=== PATIENT | male | born 1970 | race Caucasian/White ===

== ENCOUNTER 2019-09-16 12:26 | Emergency (ER) | payer BC, SELFPAY ==
--- NOTE | ~2019-09-16 | CT_ITS ---
EXAMINATION: CTA chest PE protocol DATE: 09/16/2019 14:05 INDICATION: Left-sided chest pain and shortness of breath TECHNIQUE: Computed tomography (CT) pulmonary angiogram of the chest was performed with 100 mL Omnipa que-350 intravenous contrast. Additional 3D reconstructions utilizing coronal maximum intensity proje ction (MIP) were performed. Automated exposure control and iterative reconstruction technique were em ployed. The dose-length product was 470.67 mGy-cm. COMPARISON: None FINDINGS: Good contrast opacification of the pulmonary arteries. There is mild streak artifact from dense contr ast in the superior vena cava and right atrium. Mild scattered respiratory motion artifact most promi nent at the lung bases with only mildly decreases sensitivity in some of the smaller subsegmental pul monary arteries. No pulmonary embolism. Mild dependent atelectasis in the bilateral lower lobes. No p neumonia, pulmonary edema, pleural effusion or pneumothorax. Heart size is normal. Atherosclerotic co ronary artery calcification. No pericardial effusion. Thoracic aorta is normal in caliber with no dis section. Mild bilateral gynecomastia. Visualized upper abdomen is unremarkable mild thoracic and mode rate lower cervical spondylosis. IMPRESSION: 1. No pulmonary embolism or other acute cardiopulmonary disease. Reviewed, dictated and finalized at location A. [employer]
--- NOTE | ~2019-09-16 | XR_ITS ---
EXAMINATION: XR chest 2V DATE: 09/16/2019 12:57 INDICATION: Midline chest pain TECHNIQUE: PA and lateral views of the chest were obtained. COMPARISON: Chest radiograph dated 10/05/2015 FINDINGS: The lungs remain clear with no focal airspace opacities, pulmonary edema, pleural effusion or pneumot horax. The cardiomediastinal silhouette is normal. Minimal thoracic and mild upper lumbar spondylosis . IMPRESSION: 1. No acute cardiopulmonary disease. Reviewed, dictated and finalized at location A. [facility]
--- NOTE | 2019-09-16 12:33 | ECG_ITS ---
Measurements Intervals Noel Rate: 114 P: 36 PA: 147 QRS: 3 QRSD: 82 T: 64 QT: 309 QTc: 426 Interpretive Statements SINUS TACHYCARDIA LEFT ATRIAL ENLARGEMENT BORDERLINE ST ABNORMALITY- LATERAL LEADS ABNORMAL ECG Electronically Signed On 09-16-2019 18:41:33 [employer] by Clyde Valderrama D.O.
[2019-09-16 12:34] VITALS: BP 155/97; PULSE 114; RESP 20; TEMP 36.7; O2SAT 95
--- NOTE | 2019-09-16 12:39 | ED.CHESTPAIN ---
HPI - Chest Pain General Chief Complaint: Chest Pain Stated Complaint: chest tightness Time Seen by Provider: 09/16/19 12:33 Source: patient Mode of arrival: ambulatory Limitations: no limitations History of Present Illness HPI narrative: The pt is a 48 y/o male who presents to the ED c/o midsternal CP onset 45 minutes ago. Pt states that he was driving to lunch when he began to experience the pain, which he describes as a tightness. He noets that he also was experiencing numbness in the fingers in his left hand. Pt then began to experience SOB, diaphoresis, and feeling warm while going back to his car. He states that his SOB has resolved since, and that the pain improved to a 2/10. He states that at its worst, the pain was a 9/10. He does not that he has had SOB chronically, but has not been diagnosed with any respiratory conditions. He states that the pain is not improved or worsened by anything. Pt notes that he has experienced some chest congestion recently, and that he took a Mucinex for this yesterday. He notes that he had intermittent episodes of this one week ago that began while driving, but notes that these were nowhere near as bad as the pain today. Pt states that he is a former smoker, but stopped smoking in January of 2017. He notes that he used to smoke 1 PPD. Pt states that he takes medication for HTN. MD complaint: chest pain Onset (ago): minute(s) (45) Timing of current episode: constant Prior episodes: Yes (1 week ago; intermittent though nowhere near as severe as current episode) Pain location: other (Midsternal) Pain scale (0-10): 2 (was 9/10 at its worst) Quality: tightness Relieving factors: nothing Exacerbating factors: nothing Associated symptoms: diaphoresis, dyspnea (Resolved, but has had chronic issues with this) and other ( Feeling warm, numbness in fingers of left hand, Chest congestion (Recently)) Related Data Home Medications Medication Instructions Recorded Confirmed benazepril 09/16/19 Allergies Allergy/AdvReac Type Severity Reaction Status Date / Time No Known Allergies Verified 09/16/19 12:45 Review of Systems Review of Systems: All systems reviewed & are unremarkable except as noted in HPI and below Constitutional: Constitutional: Reports excessive sweating and Reports other ( Feeling warm ) ENT: Reports other (Chest congestion (Recently)) Cardiovascular: Cardiovascular: Reports chest pain (Midsternal, tightness) Respiratory: Respiratory: Reports dyspnea (Resolved, but has had chronic issues with this) Neurologic: Reports numbness (In fingers of the left hand) PMFSH Past Medical History Medical History (Updated 09/16/19 @ 16:24 by Maribel Lozano MD) Deviated septum HTN (hypertension) Surgical History Surgical History (Updated 09/16/19 @ 12:55 by Martell Granados) H/O sinus surgery Family History Family History (Updated 06/15/11 @ 16:21 by DOCTOR UNKNOWN) Grandparent Diabetes mellitus Social History Social History (Updated 09/16/19 @ 12:55 by Martell Granadso) Smoking status: Former smoker Additional smoking assessment comments: Pt used to smoke 1 PPD. Alcohol intake: current Gender identity (if verbalized by the patient): Male Comments PCP: Dr. Blake Exam Narrative: Exam Narrative: GENERAL: Well-appearing, well-nourished, and in no acute distress. HEAD: Normocephalic, atraumatic EYES: PERRLA and EOMI, conjunctiva clear without discharge THROAT:Mucous membranes moist, Oropharynx normal without erythema, exudate, peritonsillar swelling or fluctuance NECK: Supple, without lymphadenopathy or mass RESPIRATORY: No respiratory distress, Airway patent, Respirations non-labored, Clear to auscultation without rales, rhonchi or wheeze HEART: Regular rate and rhythm. No murmur heard. Normal peripheral pulses. ABDOMEN: Soft, nontender, nondistended, normal active bowel sounds. No masses. No rebound or guarding, No organomegaly. EXTREMITI
[2019-09-16 12:42] VITALS: PULSE 111
[2019-09-16] MEDS: ASPIRIN 81 MG CHEWABLE TABLET 324 MG PO (12:45)
[2019-09-16 12:59] LABS: Basophils Percent Auto 0.2 % (0.2-1.2); Eosinophils Absolute Auto 0.1 K/mm3 (0-0.3); Eosinophils Percent Auto 0.6 % (0-4.4); Hematocrit 48.9 % (42.0-52.0); Immature Granulocyte Absolute 1.04 K/mm3 (0.00-0.031); Immature Granulocyte Percent A 4.8 % (0-0.5); Lymphocytes Absolute Auto 2.15 K/mm3 (0.9-3.2); Mean Corpuscular HGB Conc 32.7 g/dl (32-36); Mean Corpuscular Hemoglobin 29.3 pg (26-34); Mean Corpuscular Volume 89.4 fl (80-100); Mean Platelet Volume 9.6 fl (7.4-10.4); Monocytes Absolute Auto 0.5 K/mm3 (0.1-0.6); Monocytes Percent Auto 2.2 % (2.6-8.5); Neutrophils Absolute Auto 17.8 K/mm3 (1.3-6.7); Neutrophils Percent Auto 82.2 % (45.5-73.1); Platelet Count Result 354 k/mm3 (150-375); Red Blood Count 5.47 M/mm3 (4.6-6.20); Red Cell Distribution Width 13.1 % (11.5-14.5); White Blood Count 21.6 K/mm3 (4.5-10.0)
[2019-09-16 13:03] LABS: Blood Urea Nitrogen 14 mg/dL (9-20); Carbon Dioxide 26 mmol/L (22-30); Chloride 97 mmol/L (98-107); Estimated CRCL calculation 65 ml/min; Estimated Glomerular Filt Rate > 60; Glucose 149 mg/dL (75-110); Potassium 4.2 mmol/L (3.4-5.0); Sodium 139 mmol/L (137-145)
[2019-09-16 13:04] LABS: Partial Thromboplastin Time 30.4 SECONDS (22.3-36.8); Prothrombin Time 12.4 Seconds (11.1-14.7)
[2019-09-16 13:15] LABS: Troponin I < 0.012 ng/mL (0.000-0.034)
[2019-09-16] MEDS: LACTATED RINGERS 1,000 ML 999 ML IV CONT (14:30)
[2019-09-16 14:31] VITALS: BP 116/79; PULSE 85; RESP 17; TEMP 36.9; O2SAT 96
[2019-09-16 16:03] VITALS: BP 117/78; PULSE 77; RESP 12; TEMP 36.4; O2SAT 95
[2019-09-16 16:03] LABS: Troponin I < 0.012 ng/mL (0.000-0.034)
[2019-09-16 17:25] VITALS: BP 119/75; PULSE 77; RESP 19; TEMP 36.8; O2SAT 95
== END 2019-09-16 17:25 | disposition home or self-care (01) ==
PROVIDERS: Emergency Medicine; Emergency Provider General Practice; PCP Family Medicine
DX: R07.2 Precordial pain (principal); D72.829 Elevated white blood cell count, unspecified; I10 Essential (primary) hypertension; Z87.891 Personal history of nicotine dependence; R00.0 Tachycardia, unspecified; R94.31 Abnormal electrocardiogram [ECG] [EKG]
CPT/HCPCS: 36415; 71046; 71275; 80048; 83605; 84484; 85025; 85610; 85730; 93005; 96360; 99284; A9270; J7120; Q9967

== ENCOUNTER 2023-01-08 17:26 | Emergency (ER) | payer BC, SELFPAY ==
[2023-01-08 17:42] VITALS: BP 154/103; PULSE 68; RESP 14; TEMP 36.8; O2SAT 94
--- NOTE | 2023-01-08 17:52 | ED.URI ---
HPI - URI/Sore Throat General Chief Complaint: Upper Respiratory Infection Stated Complaint: Sinus/Sore Throat Time Seen by Provider: 01/08/23 17:52 Source: patient Mode of arrival: ambulatory Limitations: no limitations History of Present Illness HPI Narrative: Patient is a 52-year-old male who presents with 1 week of sinus congestion, sinus pressure, ear pain, sore throat. Symptoms started after having windows open in attic fan running due to air condition being broken. Patient states he does have seasonal allergies and uses nasal spray daily. History of rhinoplasty due to chronic sinusitis. Has been using Sudafed with no relief. Denies any fever, chills, nausea, vomiting, diarrhea, cough Related Data Allergies Allergy/AdvReac Type Severity Reaction Status Date / Time No Known Allergies Verified 09/16/19 12:45 Review of Systems Review of Systems: All systems reviewed & are unremarkable except as noted in HPI and below Constitutional: Constitutional: Denies body ache(s), Denies chills, Denies fatigue, Denies fever(s), Denies headache(s), Denies malaise and Denies weakness Eyes: Eyes: Denies blurry vision, Denies itchy eyes and Denies loss of vision ENT: Reports otalgia, Denies headache(s), Reports nasal congestion, Reports nasal discharge, Denies sinus pain, Reports sinus pressure and Reports sore throat Cardiovascular: Cardiovascular: Denies chest pain, Denies irregular heart rhythm and Denies dyspnea Respiratory: Respiratory: Denies cough and Denies dyspnea Gastrointestinal: Gastrointestinal: Denies abdominal pain, Denies diarrhea, Denies nausea and Denies vomiting Musculoskeletal: Musculoskeletal: Denies back pain, Denies myalgias and Denies arthralgias Integumentary/Breasts: Skin/Breast: Denies pruritus and Denies rash Neurologic: Denies headache(s), Denies loss of vision and Denies weakness Psychiatric: Psychiatric: Reports no additional psychiatric complaints Endocrine: Endocrine: Denies fatigue Allergic/Immunologic: Allergic/Immunologic: Denies itchy eyes PMFSH Past Medical History Medical History (Updated 01/08/23 @ 18:32 by Nadia Fair, [employer] ANALYST) Deviated septum HTN (hypertension) Surgical History Surgical History (Updated 09/16/19 @ 12:55 by Martell Granados) H/O sinus surgery Family History Family History (Updated 06/15/11 @ 16:21 by DOCTOR UNKNOWN) Grandparent Diabetes mellitus Social History Social History (Updated 09/16/19 @ 12:55 by Martell Granados) Smoking status: Former smoker Additional smoking assessment comments: Pt used to smoke 1 PPD. Alcohol intake: current Gender identity (if verbalized by the patient): Male Comments At time of signature, agree with nursing past medical, surgical, social and family history. There is no relevant family history pertinent to the presenting complaint. Exam Const: General: cooperative, healthy appearing, comfortable, no acute distress and well nourished Nutritional Appearance: well nourished Orientation/consciousness: patient oriented x3 Limitations: no limitations HENMT: Head: normal to inspection, normocephalic and atraumatic Ears: hearing grossly normal bilaterally, external ears normal, TM's normal bilaterally, EAC's normal and no periauricular adenopathy Face/Nose/Sinus: Normal external nose present, Abnormal mucous membranes and turbinates present erythematous bilateral and diffuse, normal facial exam, face symmetric and Facial tenderness on exam of face and sinuses Face and sinus: normal facial exam, sinuses nontender and face symmetric Mouth: Yes Normal oral and palatal mucosa present, Yes lip normal, Yes tongue normal, Yes Normal salivary glands and ducts present, Yes oropharynx normal and Yes moist mucous membranes Teeth and gingiva: dentition normal Throat: tonsils normal, uvula midline, posterior oropharynx abnormal erythema and postnasal drainage Eyes: General: appearance normal, both eyes and all related
== END 2023-01-08 18:38 | disposition home or self-care (01) ==
PROVIDERS: Emergency Provider Nurse Practitioner Family; PCP Family Medicine
DX: J01.40 Acute pansinusitis, unspecified (principal); I10 Essential (primary) hypertension; Z87.891 Personal history of nicotine dependence
CPT/HCPCS: 99213; G0463

== ENCOUNTER 2024-05-30 01:49 | Day surgery (SDC) | payer BC, SELFPAY ==
[2024-05-18 09:45] VITALS: BMI 28.9
[2024-05-30 07:18] VITALS: BP 137/87; PULSE 65; RESP 18; TEMP 36.6; O2SAT 99
[2024-05-30] MEDS: LACTATED RINGERS 1,000 ML 150 ML IV CONT (07:27)
--- NOTE | 2024-05-30 07:31 | PM.IMHP ---
H&P: HPI History of Present Illness Date/Time: 05/30/24 07:31 Chief Complaint: Screening for colorectal cancer Narrative: this is a 53-year-old man who presents for colonoscopy. He has never had a colonoscopy before. He denies any hematochezia or melena. He denies any family history of colon cancer. Review of Systems Review of Systems: All systems reviewed & are unremarkable except as noted in HPI and below Constitutional: Constitutional: Denies chills, Denies fever(s), Denies headache(s) and Denies weight loss Eyes: Eyes: Denies change in vision ENT: Denies dizziness, Denies headache(s), Denies neck mass and Denies throat swelling Cardiovascular: Cardiovascular: Denies chest pain, Denies lightheadedness and Denies dyspnea Respiratory: Respiratory: Denies cough, Denies dyspnea and Denies wheezing Gastrointestinal: Gastrointestinal: Denies abdominal pain, Denies change in bowel habits, Denies nausea and Denies vomiting Genitourinary: Genitourinary: Denies hematuria and Denies dysuria Musculoskeletal: Musculoskeletal: Reports as per HPI Integumentary/Breasts: Skin/Breast: Reports as per HPI Neurologic: Denies dizziness and Denies headache(s) Allergic/Immunologic: Allergic/Immunologic: Denies throat swelling and Denies wheezing [facility] Past Medical History Medical History (Updated 03/06/24 @ 16:27 by BRENNON Hawkins) Deviated septum HTN (hypertension) Surgical History Surgical History H/O sinus surgery Family History Family History Grandparent Diabetes mellitus Social History Social History Smoking status: Former smoker Tobacco type: cigarettes Additional smoking assessment comments: Pt used to smoke 1 PPD. Alcohol intake: current Drinks per week: 4 Substance use type: does not use Living arrangements: with family Gender identity (if verbalized by the patient): Male Spiritual care concerns: No Meds Home Medications and Allergies Home Medications Medication Instructions Recorded Confirmed Type rosuvastatin 20 mg tablet 20 mg PO DAILY #90 tabs 03/22/24 05/30/24 Rx Allergies Allergy/AdvReac Type Severity Reaction Status Date / Time No Known Allergies Allergy Verified 05/30/24 07:16 Vital Signs Vital Signs - 24 hr 05/30/24 07:18 Temperature 97.9 F Pulse Rate 65 Respiratory Rate 18 Blood Pressure 137/87 Pulse Oximetry 99 Oxygen Delivery Room Air Exam Const: General: no acute distress and alert Orientation/consciousness: patient oriented x3 HENMT: Head: normocephalic and atraumatic Ears: hearing grossly normal bilaterally Face/Nose/Sinus: Normal nares present Mouth: Yes Normal oral and palatal mucosa present Eyes: Periorbital: periorbital findings normal Sclera: sclerae normal EOM: EOMs intact bilaterally Neck: Neck: normal visual inspection, no lymphadenopathy and trachea midline Chest: Chest palpation & inspection: normal inspection of the chest Resp: Effort & Inspection: normal respiratory effort Auscultation: clear to auscultation bilaterally Cardio: Jugular venous distension: no JVD Rate: regular rate Rhythm: regular rhythm Heart sounds: S1 normal heart sound present and S2 normal heart sound present Peripheral pulses: Peripheral pulses 2+ throughout GI: Inspection: normal to inspection GI Palp: Yes Soft to palpation, No Tenderness to palpation present (GI), No Guarding due to palpation present (GI) and No Rebound tenderness present Percussion: Yes normal to percussion Auscultation: normal bowel sounds : General: Yes no CVA tenderness Back/Spine/Pelvis: Back: no CVA tenderness Neuro: General: patient oriented x3, no focal motor deficits and CN's II-XI intact bilaterally Cognition (Neuro): normal cognition Speech: normal speech Motor exam (neuro): 5/5 motor strength present throughout Extrem: General: capillary refill normal and no clubbing, cyanosis or edema Assessment and Plan Assessment and plan (1) Screen for colon cancer: Code(s): Z12.11 - Encounter for screening for malignant neoplasm of colon Status: Acute Assessment and Plan: I have recommended colonoscopy. I have discussed the procedure, risks, benefits, and alternatives. Questions were answered. Patient is agreeable to proceed.
--- NOTE | 2024-05-30 07:33 | P.PNAN_ITS ---
Anes - Initial Pre Proc Eval Procedure: Operation Date: 05/30/24 08:00 Proposed Procedures p Screening Colonoscopy - Chao Perez DO Date/Time: 05/30/24 07:33 Surgeon: Chao Perez DO Pre Op Diagnosis: Screening for malignant neoplasm of colon Patient Data Age: 53 Gender: M Height: 1.73 m Weight: 87.6 kg Last Vital Signs Temp 36.6 C 05/30/24 07:18 Pulse 65 05/30/24 07:18 Resp 18 05/30/24 07:18 BP 137/87 05/30/24 07:18 Pulse Ox 99 05/30/24 07:18 O2 Del Method Room Air 05/30/24 07:18 Allergies Allergy/AdvReac Type Severity Reaction Status Date / Time No Known Allergies Allergy Verified 05/30/24 07:16 Home Medications Medication Instructions Recorded Confirmed Type rosuvastatin 20 mg tablet 20 mg PO DAILY #90 tabs 03/22/24 05/30/24 Rx Patient hx anesthesia problems: none Family hx anesthesia problems: none Results Review: All pre-operative results and documents have been reviewed as part of the pre- operative evaluation. [facility] Past Medical History Medical History Deviated septum HTN (hypertension) Surgical History Surgical History H/O sinus surgery Family History Family History Grandparent Diabetes mellitus Social History Social History Smoking status: Former smoker Tobacco type: cigarettes Additional smoking assessment comments: Pt used to smoke 1 PPD. Alcohol intake: current Drinks per week: 4 Substance use type: does not use Living arrangements: with family Gender identity (if verbalized by the patient): Male Spiritual care concerns: No Anes - Eval Final PreProcedure Day of Procedure 05/30/24 07:33 Patient weight: overweight Heart: regular rate and rhythm Lungs: clear to auscultation and normal air movement Airway: Mallampati scale class II Neurological: alert and oriented Last oral intake: >/= 8 hours ASA classification: II Emergent: no Anesthetic plan: proceed Anesthesia type and monitoring: general GIVS Results Review: All pre-operative results and documents have been reviewed as part of the pre- operative evaluation. Informed Consent: The patient's anesthetic plan and its attendant risks and benefits were discussed with the patient/family/POA. Questions were solicited and answers provided to the satisfaction of the patient/family/POA.
[2024-05-30 08:22] VITALS: BP 139/91; PULSE 66; RESP 19; O2SAT 100
[2024-05-30 08:32] VITALS: BP 123/75; PULSE 64; RESP 17; O2SAT 98
[2024-05-30 08:42] VITALS: BP 148/97; PULSE 62; RESP 18; O2SAT 100
== END 2024-05-30 08:58 | disposition home or self-care (01) ==
PROVIDERS: PCP Family Medicine; Visit Provider Surgery
PROC: 0DJD8ZZ Inspection of Lower Intestinal Tract, Via Natural or Artificial Opening Endoscopic (ICD-10-PCS; CPT 45378; principal; 2024-05-30 08:00)
DX: Z12.11 Encounter for screening for malignant neoplasm of colon (principal); I10 Essential (primary) hypertension; Z98.890 Other specified postprocedural states; Z87.891 Personal history of nicotine dependence
CPT/HCPCS: 45378; J2704; J7120

== ENCOUNTER 2025-01-15 12:51 | Outpatient (CLI) | payer BC, SELFPAY ==
--- NOTE | ~2025-01-15 | XR_ITS ---
XR cervical spine min 6V Ordering provider: BRENNON Hawkins History: . M54.2 - Cervicalgia . Comparison: None. FINDINGS: VERTEBRAL BODIES: Normal height and alignment. No visible fracture or subluxation. The dens is intact . Degenerative changes of the spine. DISK SPACES: Narrowing of the disc C4-C5, C5-C6 and C6-C7. Bilateral narrowing of the foramina in the lower cervical area. Multilevel uncovertebral joint osteoarthritic changes. PARASPINOUS SOFT TISSUES: No prevertebral soft tissue swelling. IMPRESSION: No acute osseous abnormality cervical spine. Multilevel degenerative disc disease. Reviewed, dictated and finalized at location A.
== END 2025-01-15 12:52 | disposition home or self-care (01) ==
PROVIDERS: PCP Family Medicine; Visit Provider Nurse Practitioner Family
DX: M50.321 Other cervical disc degeneration at C4-C5 level (principal); M50.322 Other cervical disc degeneration at C5-C6 level; M50.323 Other cervical disc degeneration at C6-C7 level
CPT/HCPCS: 72052